=== PATIENT | male | born 1995 | race Caucasian/White ===

== ENCOUNTER 2017-04-07 12:48 | Emergency (ER) | payer MEDICAID ==
[~2017-04-07] VITALS: Ht 167.6 cm; Wt 111.4 kg
[2017-04-07] MEDS ORDERED: IBUPROFEN 800 MG TABLET PO ONE (14:30)
[2017-04-07 16:07] VITALS: BP 119/49
== END 2017-04-07 16:20 | disposition home or self-care (01) ==
LOC: EMS 12:52
DX: S60.222A Contusion of left hand, initial encounter (principal); M79.605 Pain in left leg; V43.52XA Car driver injured in collision with other type car in traffic accident, initial encounter; Y93.89 Activity, other specified; Y92.89 Other specified places as the place of occurrence of the external cause; Y99.8 Other external cause status
CPT/HCPCS: 99284

== ENCOUNTER 2024-05-04 06:46 | Emergency (ER) | payer MEDICAID ==
[~2024-05-04] VITALS: Ht 167.6 cm; Wt 113.6 kg
[2024-05-04 06:53] VITALS: BP 174/93; PULSE 58; RESP 20; TEMP 97.7; O2SAT 100
[2024-05-04 07:25] LABS: APPEARANCE,URINE HAZY (CLEAR); BILIRUBIN,URINE NEGATIVE (NEGATIVE); COLOR,URINE LIGHT ORANGE (YELLOW); GLUCOSE, URINE (UA) NEGATIVE (NEGATIVE); KETONES,URINE NEGATIVE (NEGATIVE); LEUKOCYTE ESTERASE ,URINE SMALL (NEGATIVE); NITRATE,URINE NEGATIVE (NEGATIVE); OCCULT BLOOD,URINE LARGE (NEGATIVE); PH,URINE 5.5 (5.0-8.0); PROTEIN,URINE 30-70 mg/dL (NEGATIVE); SPECIFIC GRAVITIY, URINE 1.014 (1.003-1.030); UROBILINOGEN,URINE <=1.0 mg/dL (<=1.0)
[2024-05-04 07:32] LABS: BACTERIA,URINE Moderate /HPF (None Seen); RBC,URINE >100 /HPF (0-2)
[2024-05-04] MEDS: DICYCLOMINE HCL 20 MG TABLET PO ONE (07:39)
[2024-05-04 08:02] LABS: BASOPHILS % (AUTO) 0.6 % (0.0-2.0); EOSINOPHILS % (AUTO) 1.6 % (1.0-6.0); HEMOGLOBIN 14.9 g/dL (13.5-17.5); LYMPHOCYTES # (AUTO) 1.4 K/uL (1.0-4.8); LYMPHOCYTES % (AUTO) 20.4 % (22.0-44.0); MEAN CORPUSCULAR HEMOGLOBIN 30.1 pg (26.0-34.0); MEAN CORPUSCULAR HGB CONC 35.6 G/dL (31.0-37.0); MEAN CORPUSCULAR VOLUME 85 fL (80-100); MONOCYTES # (AUTO) 0.5 K/uL (0.1-1.0); NEUTROPHILS # (AUTO) 4.6 K/uL (1.8-7.7); NEUTROPHILS % (AUTO) 69.4 % (40.0-70.0); PLATELET COUNT (AUTO) 198 K/uL (150-450); RED BLOOD CELL COUNT(AUTO) 4.96 MIL/uL (4.50-5.90); RED CELL DISTRIBUTION WIDTH 13.6 % (11.5-14.5); WHITE BLOOD COUNT (AUTO) 6.7 K/uL (4.5-11.0)
[2024-05-04 08:10] LABS: ANION GAP 5 mmol/L (8-16); CALCIUM, TOTAL 11.2 mg/dL (8.8-10.5); CARBON DIOXIDE 26 mmol/L (22-29); CHLORIDE 105 mmol/L (98-107); CREATININE 0.97 mg/dL (0.60-1.30); GLOMERULAR FILTR. RATE CALC > 60 mL/min (>60); GLUCOSE,RANDOM 105 mg/dL (70-110); POTASSIUM 3.8 mmol/L (3.5-5.1); SODIUM SERUM 136 mmol/L (136-145); UREA NITROGEN, BLOOD 11 mg/dL (7-18)
[2024-05-04 08:17] LABS: ALANINE AMINOTRANSFERASE 126 U/L (12-78); ALBUMIN 4.1 g/dL (3.4-5.0); ALKALINE PHOSPHATASE 132 U/L (46-116); ASPARTATE AMINOTRANSFERASE 41 U/L (15-37); BILIRUBIN,TOTAL 0.7 mg/dL (0.1-1.0); TOTAL PROTEIN, SERUM 7.6 g/dL (6.4-8.2)
[2024-05-04] MEDS ORDERED: TAMS0.4C94 PO (08:52)
[2024-05-04] MEDS ORDERED: OXYC-38 PO (08:52)
[2024-05-04] MEDS ORDERED: IBUP-2088 PO (08:52)
== END 2024-05-04 09:28 | disposition home or self-care (01) ==
LOC: EMS 06:46
DX: N13.2 Hydronephrosis with renal and ureteral calculous obstruction (principal); K58.9 Irritable bowel syndrome, unspecified; N43.3 Hydrocele, unspecified
CPT/HCPCS: 74176; 76870; 80048; 80076; 81001; 85025; 87086; 99284